=== PATIENT | male | born 1990 | race Caucasian/White ===

== ENCOUNTER 2018-10-06 10:00 | Emergency (ER) | payer OTHER ==
[2018-10-06] MEDS ORDERED: RABIES VACC, HUMAN DIPLOID/PF 2.5 UNIT VIAL (RABAVERT) IM ONE (11:11)
[2018-10-06] MEDS ORDERED: RABIES IMMUNE GLOBULIN/PF 300 UNIT/ML VIAL IF ONE (11:11)
--- NOTE | 2018-10-06 11:17 | EDPHY ---
General - History Smoking Status: Never smoked Time Seen by Provider: 10/06/18 10:55 Narrative: CLINICAL IMPRESSION: Bat Exposure ASSESSMENT/PLAN: Patient is a 27-year-old male with no significant medical history who presents to the emergency department after being exposed to a bat. Patient with no physical contact to the bat, it has been flying around in his apartment. Denies any physical complaints. His vital signs were reviewed and I do not suspect systemic infection. Will initiate rabies prophylaxis for exposure, he understands that he will need to return on day 3, 7 and 14. He can do this in the emergency department or at [facility]. He does not have a PCP, referral was provided. Return precautions discussed. ED COURSE: 1113: Case discussed with Dr. Duncan CHIEF COMPLAINT: Bat exposure HPI: Patient is a 27-year-old male with no significant medical history who presents to the emergency department after being exposed to a bat. Patient reports hearing some noises in his fireplace list night, he was able to visualize a bat. He thought he got rid of the bat however it got into his house. Landed on his cat at 1 point. He has never come and contact the bad himself. He took his animal to the company marker, his company marker recommended he come here for prophylaxis. Patient denies any fever, headache, dizziness, chest pain, shortness of breath, rash, wounds or any other physical complaint. PAST MEDICAL HISTORY: Denies Family History: Denies Social History: Denies cigarette smoking or illicit drug use ROS: A full 10 point review of systems was negative except for those mentioned in HPI. PHYSICAL EXAM: General Appearance: Well-appearing, no acute distress. Respiratory: There are no retractions, lungs are clear to auscultation. Cardiac: Regular rate and rhythm, no murmurs or gallops. Gastrointestinal: Abdomen is soft, nontender, bowel sounds normal, no masses/ hernia, no rigidity, guarding or focal peritoneal findings. Neuro: His neurological exam is grossly normal with no focal deficit. Skin: Warm, dry, no rashes. MEDICAL DECISION MAKING: Patient was seen independently. Secondary supervising physician at time of evaluation was Dr. Duncan, he did not evaluate this patient. Diagnosis: Bat exposure. Summary: See Assessment and Plan for summary of ED visit Clinical lab tests: Not applicable. Independent visualization of images, tracing, or specimens: Not applicable. Decision to obtain medical records or history from someone other than the patient: No Review / Summarize previous medical records: No Discussed patient with another provider: Yes, Dr. Duncan Patient Progress: Stable, discharge. (Lucero Ness) Medical Decision Making: I did not see this patient while he was in the emergency department. However his care was discussed with the PA while the patient was in the department. I agree with treatment plan and management (Ganga Duncan) - Objective Vital Signs: Initial Vital Signs Temperature (C) 37.1 C 10/06/18 10:11 Heart Rate 60 10/06/18 10:11 Respiratory Rate 18 10/06/18 10:11 Blood Pressure 148/95 H 10/06/18 10:11 O2 Sat (%) 100 10/06/18 10:11 O2 Delivery Mode Room Air Allergies/Adverse Reactions: No Known Allergies Allergy (Unverified 10/06/18 10:11) Home Medications: Medication Instructions Recorded NK [No Known Home Meds] 10/06/18 Medications Given: Discontinued Medications Rabies Immune Globulin (Hyperrab 300 Unit/Ml) 1,678.3 unit IF .ONCE ONE Stop: 10/06/18 11:12 Last Admin: 10/06/18 12:12 Dose: 1,678.3 unit Rabies Vaccine Human Diploid Cell (Rabavert) 2.5 unit IM .ONCE ONE Stop: 10/06/18 11:12 Last Admin: 10/06/18 12:07 Dose: 2.5 unit Departure - Departure Disposition: Home, Routine, Self-Care Clinical Impression: Exposure to bat without known bite Condition: Good Instructions: Rabies Vaccine (By injection), Rabies Immune Globulin (By injection), Rabies (ED) Additional Instructions: DISCHARGE INSTRUCTIONS FROM YOUR PROVIDER Thank you for visiting our emergency department today. Please keep in mind that discharge from the emergency department does not mean that there is nothing wrong - it simply means that we have not identified an emergency condition that requires further evaluation or treatment in the hospital. Vaccine Human diploid cell vaccine (HDCV) on day 0 (today), 3, 7 and 14. You will need to return to the emergency department or infectious Disease to have these vaccinations repeated. Return to the emergency department for any development of fever, rash, concern of wounds, headache, dizziness, altered mentation, hallucinations or for any other concerning symptom. People present with illnesses and injuries in different ways, and it is always possible that we have missed something. Again, thank you for choosing our emergency department. We hope that you feel better. Referrals: ED,PHYSICIAN MARIO [Medical Doctor] - As per Instructions (You need to return day 3, day 7 and day 14 for repeat vaccinations) [facility] (ED,. [Edm Groups for Call Sched] - As per Instructions (You may also follow up with [facility] to get her vaccinations.) Abby Jane MD [Medical Doctor] - As per Instructions (Please establish care with a primary care provider.)
[2018-10-06 12:31] VITALS: BP 135/78
== END 2018-10-06 12:51 | disposition home or self-care (01) ==
DX: Z20.3 Contact with and (suspected) exposure to rabies (principal); Z23 Encounter for immunization